=== PATIENT | female | born 1965 | race Caucasian/White ===

== ENCOUNTER 2017-02-17 09:58 | Emergency (ER) | payer BC ==
[2017-02-17 12:07] VITALS: BP 128/85
--- NOTE | 2017-02-17 12:45 | UC ---
Throat Pain/Nasal Noam HPI - HPI Summary HPI Summary: Pt presents with c/o nasal congestion, core throat, generalized body aches, X 1 day. - History of Current Complaint Chief Complaint: UCGeneralIllness Stated Complaint: THROAT,CONGESTION Time Seen by Provider: 02/17/17 12:22 Hx Obtained From: Patient Hx Last Menstrual Period: 07/24/16 ?: No Onset/Duration: Sudden Onset, Lasting Days - 1 day Severity: Mild Cough: Nonproductive Associated Signs & Symptoms: Positive: Dysphagia - Allergies/Home Medications Allergies/Adverse Reactions: Allergies Allergy/AdvReac Type Severity Reaction Status Date / Time No Known Allergies Allergy Verified 02/17/17 12:00 PMH/Surg Hx/FS Hx/Imm Hx Previously Healthy: Yes Endocrine History Of: Denies: Diabetes Cardiovascular History Of: Denies: Hypertension, Pacemaker/ICD Respiratory History Of: Denies: Asthma GI/ History Of: Denies: Renal Disease - Surgical History Surgical History: Yes Surgery Procedure, Year, and Place: 2000 BREAST REDUCTION - Family History Known Family History: Positive: Cardiac Disease, Hypertension - Social History Alcohol Use: None Substance Use Type: None Smoking Status (MU): Never Smoked Tobacco Review of Systems Constitutional: Fever - unsure of temperature does not have thermomator, Chills , Fatigue Skin: Negative Eyes: Negative ENT: Sore Throat Respiratory: Cough Cardiovascular: Negative Gastrointestinal: Negative Genitourinary: Negative Motor: Negative Neurovascular: Negative Musculoskeletal: Myalgia Neurological: Negative Psychological: Negative All Other Systems Reviewed And Are Negative: Yes Physical Exam Triage Information Reviewed: Yes Appearance: Well-Appearing Vital Signs: Initial Vital Signs Temp 98.7 F 02/17/17 12:02 Pulse 73 02/17/17 12:02 Resp 16 02/17/17 12:02 BP 128/85 02/17/17 12:02 Pulse Ox 97 02/17/17 12:02 Vital Signs Reviewed: Yes Eye Exam: Normal ENT Exam: Other ENT: Positive: Nasal congestion, Other: - PND Dental Exam: Normal Neck exam: Normal Respiratory Exam: Normal Cardiovascular Exam: Normal Musculoskeletal Exam: Normal Neurological Exam: Normal Psychological Exam: Normal Skin Exam: Normal Throat Pain/Nasal Course/Dx - Differential Dx/Diagnosis Differential Diagnosis/HQI/PQRI: Influenza, Pharyngitis, Tonsillitis, URI Provider Diagnoses: URI Discharge - Discharge Plan Condition: Stable Disposition: HOME Patient Education Materials: Upper Respiratory Infection (ED) Referrals: Odin Hudson MD [Primary Care Provider] - If Needed Additional Instructions: Please follow up with your PCP or return to clinic as needed.
== END 2017-02-17 13:24 | disposition home or self-care (01) ==
LOC: UCCORT 09:58
DX: J06.9 Acute upper respiratory infection, unspecified (principal)
CPT/HCPCS: 87651; 99211; G0463

== ENCOUNTER 2018-12-15 09:01 | Emergency (ER) | payer BC ==
[2018-12-15 09:22] VITALS: BP 142/89
--- NOTE | 2018-12-15 09:23 | UC ---
Throat Pain/Nasal Noam HPI - HPI Summary HPI Summary: 53 y/o female presents to the urgent care c/o sore throat and fever since yesterday. 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 Yesterday she had a fever of 100.6 and alleviated w/ Dimovo PO. Pain w/ swallowing is 6/10 associated w/ SALDANA, body aches. Pt denies SOB, cough, chest pain,abdominal pain, N/V/D. - History of Current Complaint Chief Complaint: UCGeneralIllness Stated Complaint: ST Time Seen by Provider: 12/15/18 09:19 Hx Obtained From: Patient Hx Last Menstrual Period: 07/24/16 Onset/Duration: Gradual Onset, Lasting Days - 1 days, Still Present Severity: Moderate Pain Intensity: 6 Pain Scale Used: 0-10 Numeric Cough: None Associated Signs & Symptoms: Positive: Dysphagia, Fever. Negative: Sinus Discomfort, Nasal Discharge - Epiglottits Risk Factors Epiglottis Risk Factors: Negative - Allergies/Home Medications Allergies/Adverse Reactions: Allergies Allergy/AdvReac Type Severity Reaction Status Date / Time No Known Allergies Allergy Verified 12/15/18 09:18 Home Medications: Home Medications Naproxen/Esomeprazole Mag [Vimovo Dr 375-20 mg Tablet] 1 tab PO ONCE 12/15/18 [ History Confirmed 12/15/18] PMH/Surg Hx/FS Hx/Imm Hx Previously Healthy: Yes Endocrine History: Dyslipidemia GI/ History: Gastroesophageal Reflux - Surgical History Surgical History: Yes Surgery Procedure, Year, and Place: 2000 BREAST REDUCTION. R knee replacement 2017 - Family History Known Family History: Positive: Cardiac Disease, Hypertension - Social History Occupation: Employed Full-time Lives: With Family Alcohol Use: Occasionally Substance Use Type: None Smoking Status (MU): Never Smoked Tobacco Review of Systems All Other Systems Reviewed And Are Negative: Yes Constitutional: Positive: Fever, Chills, Other - body aches Skin: Positive: Negative Eyes: Positive: Negative ENT: Positive: Sore Throat Respiratory: Positive: Negative Cardiovascular: Positive: Negative Gastrointestinal: Positive: Negative Genitourinary: Positive: Negative Motor: Positive: Negative Neurovascular: Positive: Negative Musculoskeletal: Positive: Myalgia Neurological: Positive: Headache Psychological: Positive: Negative Is Patient Immunocompromised?: No Physical Exam - Summary Physical Exam Summary: VITAL SIGNS: Reviewed. GENERAL: Patient is a well developed and nourished female who is sitting comfortable in the examining table. Patient is not in any acute respiratory distress. HEAD AND FACE: No signs of trauma. No ecchymosis, hematomas or skull depressions. No sinus tenderness. EYES: PERRLA, EOMI x 2, No injected conjunctiva, no nystagmus. No photophobia. EARS: Hearing grossly intact. Ear canals and tympanic membranes are within normal limits. MOUTH: Positive pharynx with erythema, exudates, palatal petechiae. B/L tonsillar enlargement with exudate. Uvula in midline. NECK: Supple, trachea is midline, Positive anterior cervical lymphadenopathy, no JVD, no carotid bruit, no c-spine tenderness, neck with full ROM. No meningeal signs, no Kernig's or brudzinskis signs. CHEST: Symmetric, no tenderness at palpation LUNGS: Clear to auscultation bilaterally. No wheezing or crackles. CVS: Regular rate and rhythm, S1 and S2 present, no murmurs or gallops appreciated. ABDOMEN: Soft, non-tender. No signs of distention. No rebound no guarding, and no masses palpated. Bowel sounds are normal. EXTREMITIES: FROM in all major joints, no edema, no cyanosis or clubbing. NEURO: Alert and oriented x 3. No acute neurological deficits. Speech is normal and follows commands. SKIN: Dry and warm Triage Information Reviewed: Yes Vital Signs: Initial Vital Signs Temp 98.5 F 12/15/18 09:19 Pulse 108 12/15/18 09:19 Resp 18 12/15/18 09:19 BP 142/89 12/15/18 09:19 Pulse Ox 97 12/15/18 09:19 Throat Pain/Nasal Course/Dx - Course Course Of Treatment: 53 y/o female presents to the urgent care c/o sore throat and fever since yesterday. 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 Yesterday she had a fever of 100.6 and alleviated w/ Dimovo PO. Pain w/ swallowing is 6/10 associated w/ SALDANA, body aches. Pt denies SOB, cough, chest pain,abdominal pain, N/V/D. Hx obtained. Pt w/ pahryngitis on examination. RApdi strep ordered: positive. Strep pharyngitis. Rx Amoxicillin PO and advised to continue w/ Dimovo PO for pain and swelling. PT Advised on hand washing to avoid spreading. Also advised to rest, eat well and avoid strenuous exercise. If symptoms do not improve or worsen advised to return to the urgent care or f/u with her PCP for further evaluation and treatment.Pt's BP is elevated today advised to decrease salt in diet, monitor BP and f/u with PCP for further management. D/C instructions explained. PT understood and agreed w/ plan of care. - Differential Dx/Diagnosis Differential Diagnosis/HQI/PQRI: Laryngitis, Mononucleosis, Pharyngitis, Sinusitis, Tonsillitis, URI Provider Diagnosis: Strep pharyngitis, Elevated BP without diagnosis of hypertension Discharge - Sign-Out/Discharge Documenting (check all that apply): Patient Departure - D/C home All imaging exams completed and their final reports reviewed: No Studies - Discharge Plan Condition: Stable Disposition: HOME Prescriptions: Amoxicillin PO (*) [Amoxicillin 500 MG CAP*] 500 mg PO Q12H #20 cap Patient Education Materials: Strep Throat (ED), Low-Sodium Diet (ED) Forms: *Work Release Referrals: Odin Hudson MD [Primary Care Provider] - 3 Days Additional Instructions: 1- Please take the full course of the antibiotic to avoid resistance. 2-Please continue taking Dimovo PO prn as instructed after meals to alleviate pain and swelling. Increase fluid intake, eat well, rest and avoid strenuous exercise 3-If symptoms do not improve or worsen please return to the urgent care or f/u with your PCP in 3 days for further evaluation and treatment. 4- Your BP is elevated today. please decrease salt in your diet, monitor BP and if it continues to be elevated please f/u with your PCP for further management. - Billing Disposition and Condition Condition: STABLE Disposition: Home - Attestation Statements Provider Attestation: Per institutional requirements, I have reviewed the chart, however, I was not consulted specifically or made aware of this patient by the midlevel provider. I did not personally evaluate, interact with , or disposition this patient.
== END 2018-12-15 09:45 | disposition home or self-care (01) ==
LOC: UCCORT 09:01
DX: J02.0 Streptococcal pharyngitis (principal); R03.0 Elevated blood-pressure reading, without diagnosis of hypertension; K21.9 Gastro-esophageal reflux disease without esophagitis; Z79.899 Other long term (current) drug therapy; Z96.651 Presence of right artificial knee joint
CPT/HCPCS: 87651; 99212; G0463

== ENCOUNTER 2019-02-20 12:02 | Emergency (ER) | payer BC ==
[2019-02-20 12:23] VITALS: BP 154/96
--- NOTE | 2019-02-20 12:32 | UC ---
Throat Pain/Nasal Noam HPI - HPI Summary HPI Summary: sore throat since this morning body aches, feverish, no cough , no runny nose - History of Current Complaint Chief Complaint: UCRespiratory Stated Complaint: SORE THROAT,FEVER Time Seen by Provider: 02/20/19 12:20 Hx Obtained From: Patient Hx Last Menstrual Period: 07/24/16 ?: No Onset/Duration: Gradual Onset, Lasting Days - 1, Still Present Severity: Moderate Pain Intensity: 6 Cough: None Associated Signs & Symptoms: Negative: Wheezing, Hoarseness, Sinus Discomfort, Nasal Discharge, Fever, Vomiting, Rash - Allergies/Home Medications Allergies/Adverse Reactions: Allergies Allergy/AdvReac Type Severity Reaction Status Date / Time No Known Allergies Allergy Verified 02/20/19 12:21 PMH/Surg Hx/FS Hx/Imm Hx - Additional Past Medical History Additional PMH: hypercholestermia - Surgical History Surgical History: Yes Surgery Procedure, Year, and Place: 2001 BREAST REDUCTION. R knee replacement 2017 - Family History Known Family History: Positive: Cardiac Disease, Hypertension - Social History Alcohol Use: Occasionally Substance Use Type: None Smoking Status (MU): Never Smoked Tobacco Review of Systems All Other Systems Reviewed And Are Negative: Yes Constitutional: Positive: Fatigue Skin: Positive: Negative Eyes: Positive: Negative ENT: Positive: Sore Throat Respiratory: Positive: Negative Musculoskeletal: Positive: Myalgia Is Patient Immunocompromised?: No Physical Exam Triage Information Reviewed: Yes Appearance: Well-Appearing, No Pain Distress, Well-Nourished Vital Signs: Initial Vital Signs Temp 98.1 F 02/20/19 12:21 Pulse 108 02/20/19 12:21 Resp 17 02/20/19 12:21 BP 154/96 02/20/19 12:21 Pulse Ox 98 02/20/19 12:21 Vital Signs Reviewed: Yes Eye Exam: Normal Eyes: Positive: Conjunctiva Clear ENT: Positive: Normal ENT inspection, Hearing grossly normal, Pharyngeal erythema. Negative: Nasal congestion, Nasal drainage, Tonsillar swelling, Tonsillar exudate Neck: Positive: Supple, Nontender, No Lymphadenopathy Respiratory: Positive: Chest non-tender, Lungs clear, Normal breath sounds Cardiovascular: Positive: RRR, No Murmur, Pulses Normal Abdominal Exam: Normal Skin Exam: Normal Throat Pain/Nasal Course/Dx - Differential Dx/Diagnosis Provider Diagnosis: Strep pharyngitis Discharge - Sign-Out/Discharge Documenting (check all that apply): Patient Departure All imaging exams completed and their final reports reviewed: No Studies - Discharge Plan Condition: Stable Disposition: HOME Prescriptions: Amoxicillin PO (*) [Amoxicillin 875 MG (*)] 875 mg PO BID #20 tab Patient Education Materials: Strep Throat (ED) Referrals: Dorene ORTEZ,Nella Lobo [Primary Care Provider] - If Needed - Billing Disposition and Condition Condition: STABLE Disposition: Home
== END 2019-02-20 12:39 | disposition home or self-care (01) ==
LOC: UCCORT 12:02
DX: J02.0 Streptococcal pharyngitis (principal)
CPT/HCPCS: 87651; 99212; G0463

== ENCOUNTER 2019-11-14 07:52 | Emergency (ER) | payer BC ==
--- OUTSIDE RECORDS SUMMARY | 2019-11-14 07:59 | XMS REPORT | Continuity of Care Document ---
:1965 External Reference #:[id number] Author Name Ngoc Her M.D. 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 [phone] Mailing Clerk Problems Description No Information Available Social History Type Date Description Comments Sex Unknown ETOH Use Occasionally consumes 1-2 per month alcohol Tobacco Use Start: Unknown Patient has never smoked Recreational Drug Use Denies Drug Use Smoking Status Reviewed: 09/25/19 Patient has never smoked Exercise Type/Frequency Exercises regularly walks everyday 1/2 mile Allergies, Adverse Reactions, Alerts Description No Known Drug Allergies Medications Active Medications SIG Qnty Indications Ordering Provider Date Simvastatin 1 tab by mouth Unknown 10mg Tablets daily Valtrex 2 by mouth every Unknown 1gm Tablets 12 hours as needed x 2 doses Tums E-X 750 2 by mouth as Unknown 750mg needed Chewtabs Immunizations Description No Information Available Vital Signs Date Vital Result Comment 09/25/2019 9:51am Height 67.50 inches 5'7.50" Weight 228.00 lb Heart Rate 60 /min regular BP Systolic 128 mmHg LA Regulr Cuff BP Diastolic 96 mmHg LA Regulr Cuff BP Systolic Sitting 130 mmHg Ra Regular Cuff BP Diastolic Sitting 94 mmHg Ra Regular Cuff BP Systolic Standing 122 mmHg Ra Regular Cuff BP Diastolic Standing 98 mmHg Ra Regular Cuff Respiratory Rate 12 /min no resp difficulties Pain Level 0 O2 % BldC Oximetry 98 % BMI (Body Mass Index) 35.2 kg/m2 Results Description No Information Available Procedures Date Code Description Status 09/25/2019 35724 EKG Tracing & Interpretation Completed Medical Devices Description No Information Available Encounters Description No Information Available Assessments Date Code Description Provider 09/25/2019 R94.31 Abnormal electrocardiogram [ECG] [EKG] Ngoc Her M.D. 09/25/2019 E78.5 Hyperlipidemia, unspecified Ngoc Her M.D. 09/25/2019 E66.9 Obesity, unspecified Ngoc Her M.D. 09/25/2019 R06.02 Shortness of breath Ngoc Her M.D. 09/25/2019 Z82.49 Family history of ischemic heart Ngoc Her M.D. disease and other diseases of the circulatory system 09/25/2019 R06.83 Snoring Ngoc Her M.D. 09/25/2019 I10 Essential (primary) hypertension Ngoc Her M.D. Plan of Treatment 09/25/2019 - Ngoc Her M.D.R94.31 Abnormal electrocardiogram [ECG] [EKG]New Orders:Echocardiogram, Ordered: 09/25/19Stress Test, Exercise Echocardiogram, Ordered: 09/25/19Follow up:ov 10/2019 or 11/2019 to discuss kidndE95.5 Hyperlipidemia, kxiikpewprgA23.9 Obesity, whkcyzwbkuqI71.02 Shortness of zchfaqK67.49 Family history of ischemic heart disease and other diseases of the circulatory lnkbgvS92.83 NripydpK73 Essential (primary) hypertension Functional Status Description No Information Available Mental Status Description No Information Available Referrals Description No Information Available
--- OUTSIDE RECORDS SUMMARY | 2019-11-14 07:59 | XMS REPORT | Continuity of Care Document ---
:1965 External Reference #:[id number] Author Name Erica Lin Care Team Providers Name Role Phone HCP given Care Team Information Health Care Sanitary Technician Unavailable [facility] location - Care Team Information Health Care Sanitary Technician Orthopaedic Surgery Problems Active Problems Provider Date Localized, primary osteoarthritis Odin Hudson M.D. Onset: 03/18/2014 Dysphagia Nella Catherine PA Onset: 07/10/2016 Hyperlipidemia Nella Catherine PA Onset: 09/09/2018 Social History Type Date Description Comments Sex Unknown Tobacco Use Start: Unknown Never Smoked Cigarettes ETOH Use Rare Alcohol Use Recreational Drug Use Type Not Specified Tobacco Use Start: Unknown Non Smoker Smoking Status Reviewed: 09/12/19 Non Smoker Allergies, Adverse Reactions, Alerts Description No Known Drug Allergies Medications Active Medications SIG Qnty Indications Ordering Date Provider Simvastatin Take One Tablet By 90tabs Krishna Hensley, 10/01/2017 10mg Mouth Every Night M.D. Tablets For Cholesterol Valtrex 2 by mouth every 12 8tabs B00.9 Krishna Hensley, 02/02/2009 1gm Tablets hours x2 doses at M.D. first sign of cold sore Medications Administered in Office Medication SIG Qnty Indications Ordering Provider Date injection, kenalog, 10 mg Odin Hudson M.D. 02/19/2015 Injection injection, kenalog, 10 mg Odin Hudson M.D. 09/11/2014 Injection injection, kenalog, 10 mg Abhay Garces D.O. 05/10/2014 Injection Immunizations CPT Code Status Date Vaccine Lot # [id number] Given 09/10/2019 Td Immunization [id number] Given 02/02/2009 Adacel or Boostrix, TDaP [id number] Refused 01/26/2014 Flu, Split Virus 3Yrs Vital Signs Date Vital Result Comment 09/10/2019 8:54am BP Systolic 114 mmHg BP Diastolic 80 mmHg Height 68.75 inches 5'8.75" Weight 225.00 lb BMI (Body Mass Index) 33.5 kg/m2 09/09/2018 8:48am BP Systolic 128 mmHg BP Diastolic 80 mmHg Height 68.5 inches 5'8.50" Weight 230.00 lb BMI (Body Mass Index) 34.5 kg/m2 Results Test Acquired Date Facility Test Result H/L Range Note Laboratory test 09/10/2019 [facility] Hemoglobin A1c <pending> finding [phone] (Glyco HGB) TSH (Thyroid Stim Horm) <pending> Laboratory test finding 09/10/2019 [facility] Cytology SEE RESULT BELOW 5 [phone] 1 SEE RESULT BELOW Name: LIZETTE BARKER : [address]: Nella ORTEZ Acct: [id number] Unit: [id number] AGE: 53 Location: [facility] Re09/10/19 SEX: F Status: REG REF SPEC: [id number] JA: 09/10/[address] [facility] [address]: Nella ORTEZ REQ: [id number] RECD: 09/10/190920 STATUS: SOUT _ ORDERED: TP IMAGE ANALYS, HPV/Thin Prep COMMENTS: [id number] FINAL DIAGNOSIS Negative for Intraepithelial lesion or Malignancy HPV RESULTS Date Time Test Result Flag (u) Normal Range 09/10/19 0951 HPV SHERRELL Negative Negative The high-risk HPV types detected by the assay include: 16, 18, 31, 33, 35, 39, 45, 51, 52, 56, 58, 59, 66, and 68. SPECIMEN(S) RECEIVED A. Ectocervical/Endocervical CYTOLOGY ADEQUACY Specimen Adequacy: Satisfactory of evaluation Transformation zone component identified CONTINUED ON NEXT PAGE DEPARTMENT OF PATHOLOGY, [address] [place] [address] Marco Pierre M.D. Director [facility] # [id number] CYTOLOGY PATIENT INFORMATION Patient Information: HPV: High risk HPV RNA testing regardless of pap results. Actual Specimen Date: 09/10/19 LMP If Unknown: 3 yrs ago Spec Date if unknown: 2015 ?: N Post Menopausal?: Y Hysterectomy?: N Previous Abnormal Pap Smears?:N Signed by and Reported on: SHAWN Bell (ASCP) [id number] This Pap test was evaluated with the assistance of the ThinPrep Test Imaging System. Due to cytologic findings at the bed machine operator microscope, comprehensive manual rescreening by a Building Appraiser may be required. The Pap Smear is a screening test designed to aid in the detection of premalignant and malignant conditions of the uterine cervix. It is not a diagnostic procedure and should not be used as the sole means of detecting cervical cancer. Both false- positive and false- negative reports do occur. Depending on your risk status, a Pap smear should be obtained and evaluated every 1-3 years. END OF REPORT DEPARTMENT OF PATHOLOGY, [address] [place] [address] Marco Pierre M.D. Director [facility] # [id number] Procedures Date Code Description Status 09/10/2019 17817 Electrocardiogram Complete Completed 12/05/2018 [id number] Colonoscopy Completed 09/19/2018 [id number] Mammogram Completed Medical Devices Description No Information Available Encounters Type Date Location Provider Dx Diagnosis Office Visit 09/10/2019 Main Office Nella Catherine PA Z00.00 Encntr for general 8:45a adult medical exam w/o abnormal findings Z12.4 Encounter for screening for malignant neoplasm of cervix Z23 Encounter for immunization Z12.31 Encntr screen mammogram for malignant neoplasm of breast E78.5 Hyperlipidemia, unspecified Z82.49 Family hx of ischem heart dis and oth dis of the circ sys Z41.8 Encntr for oth proc for purpose oth [facility] Z68.33 Body mass index (BMI) 33.0-33.9, adult Assessments Date Code Description Provider 09/10/2019 Z00.00 Encounter for general adult medical examination Nella Catherine PA without abno 09/10/2019 Z12.4 Encounter for screening for malignant neoplasm of Nella Catherine PA cervix 09/10/2019 Z23 Encounter for immunization Nella Catherine PA 09/10/2019 Z12.31 Encounter for screening mammogram for malignant Nella Catherine PA neoplasm of breast 09/10/2019 E78.5 Hyperlipidemia, unspecified Nella Catherine PA 09/10/2019 Z82.49 Family history of ischemic heart disease and Nella Catherine PA other diseases of the circulatory system 09/10/2019 Z41.8 Encounter for other procedures for purposes other Nella Catherine PA than remedying health state 09/10/2019 Z68.33 Body mass index (BMI) 33.0-33.9, adult Nella Catherine PA Plan of Treatment Future Appointment(s):09/14/2020 9:40 am - Nella Catherine PA at [id number] - Nella Catherine, PAZ00.00 Encounter for general adult medical examination without abnoComments:53 year old female. Screening updated. Pt declined flu vaccine. Is on wait list for Shingrix.Follow up:physical in one yearZ12.4 Encounter for screening for malignant neoplasm of cervixComments:PAP done today. If normal, then next pap test should be in 3 years.Z23 Encounter for immunizationComments:Td booster given today.Z12.31 Encounter for screening mammogram for malignant neoplasm of breastNew Xrays:Mammography, Screening, Bilateral, Scheduled: 09/24/19Comments:Mammogram due--ordered.E78.5 Hyperlipidemia, unspecifiedComments:Will recheck labs.Z82.49 Family history of ischemic heart disease and other diseases of the circulatory systemComments:EKG today showed sinus bradycardia. Will refer to cardiology for consult/further testing based on FHx of early cardiac disease.Referral:[facility], Cardiology/Phys/EkuctQ30.8 Encounter for other procedures for purposes other than remedying health bjdglF74.33 Body mass index (BMI) 33.0-33.9, adult Functional Status Description No Information Available Mental Status Description No Information Available Referrals Refer to Reason for Referral Status Appt Date [facility] FHx early heart disease Consult and Testing - Sent / Specialist decides [facility] of [address] [place] [address] [phone]
[2019-11-14 08:10] VITALS: BP 138/83
--- NOTE | 2019-11-14 08:26 | UC ---
Throat Pain/Nasal Noam HPI - HPI Summary HPI Summary: 54-year-old female presents with onset of headache and sore throat last evening. Symptoms are associated with mild nasal congestion and occasional dry cough. 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 Denies fever, chills, ear pain, dysphagia, chest pain, shortness of breath, abdominal pain, nausea, or vomiting. - History of Current Complaint Chief Complaint: UCRespiratory Stated Complaint: ST Time Seen by Provider: 11/14/19 08:15 Hx Obtained From: Patient Hx Last Menstrual Period: 07/24/16 Pain Intensity: 5 - Allergies/Home Medications Allergies/Adverse Reactions: Allergies Allergy/AdvReac Type Severity Reaction Status Date / Time No Known Allergies Allergy Verified 11/14/19 08:01 PMH/Surg Hx/FS Hx/Imm Hx Endocrine History: Dyslipidemia - Surgical History Surgical History: Yes Surgery Procedure, Year, and Place: 2000 BREAST REDUCTION. R knee replacement 2017 - Family History Known Family History: Positive: Cardiac Disease, Hypertension - Social History Occupation: Employed Full-time Lives: With Family Alcohol Use: Rare Substance Use Type: None Smoking Status (MU): Never Smoked Tobacco Review of Systems All Other Systems Reviewed And Are Negative: Yes Constitutional: Negative: Fever, Chills Skin: Negative: Rash Eyes: Negative: Drainage, Eye Redness ENT: Positive: Sore Throat, Nasal Discharge. Negative: Ear Ache, Sinus Congestion, Sinus Pain/Tenderness Respiratory: Positive: Cough. Negative: Shortness Of Breath Cardiovascular: Negative: Chest Pain Gastrointestinal: Negative: Abdominal Pain, Vomiting, Nausea Genitourinary: Positive: Negative Musculoskeletal: Positive: Negative Neurological: Positive: Headache Is Patient Immunocompromised?: No Physical Exam - Summary Physical Exam Summary: GENERAL APPEARANCE: Well developed, well nourished, alert and cooperative, and appears to be in no acute distress. EYES: Conjunctiva clear. No drainage. EARS: External auditory canals and tympanic membranes clear, hearing grossly intact. NOSE: No nasal discharge. THROAT: Pharyngeal erythema. 2+ tonsils without exudate or lesions. Uvula midline. NECK: Neck supple, non-tender. Mild anterior lymphadenopathy. CARDIAC: Normal S1 and S2. No S3, S4 or murmurs. Rhythm is regular. There is no peripheral edema, cyanosis or pallor. Extremities are warm and well perfused. Capillary refill is less than 2 seconds. Peripheral pulses intact. LUNGS: Clear to auscultation without rales, rhonchi, wheezing or diminished breath sounds. ABDOMEN: Positive bowel sounds. Soft, nondistended, nontender. No guarding or rebound. No masses or hepatosplenomegally. MUSKULOSKELETAL: ROM intact to all extremities. No joint erythema or tenderness. Normal muscular development. Normal gait. SKIN: Skin normal color, texture and turgor with no lesions or eruptions. Triage Information Reviewed: Yes Vital Signs: Initial Vital Signs Temp 99.2 F 11/14/19 08:03 Pulse 100 11/14/19 08:03 Resp 20 11/14/19 08:03 BP 138/83 11/14/19 08:03 Pulse Ox 96 11/14/19 08:03 Vital Signs Reviewed: Yes Throat Pain/Nasal Course/Dx - Course Course Of Treatment: 54-year-old female presents with onset of headache and sore throat last evening. Symptoms are associated with mild nasal congestion and occasional dry cough. 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 Denies fever, chills, ear pain, dysphagia, chest pain, shortness of breath, abdominal pain, nausea, or vomiting. Afebrile. Vital signs stable. Patient had pharyngeal erythema, 2+ tonsils without exudate, mild anterior cervical pain, and otherwise unremarkable exam. Rapid strep test was positive. Reviewed the results with the patient and will start her on amoxicillin 500 mg twice a day 10 days as well as symptomatic therapy for strep pharyngitis. She is to follow-up with her primary care provider in 3 days if symptoms are not improving. Anticipatory guidance and warning symptoms are reviewed to the patient. Verbalizes understanding and agrees to plan of care. - Differential Dx/Diagnosis Differential Diagnosis/HQI/PQRI: Pharyngitis, Tonsillitis, URI Provider Diagnosis: Strep pharyngitis Discharge ED - Sign-Out/Discharge Documenting (check all that apply): Patient Departure All imaging exams completed and their final reports reviewed: No Studies - Discharge Plan Condition: Stable Disposition: HOME Prescriptions: Amoxicillin PO (*) [Amoxicillin 500 MG CAP*] 500 mg PO Q12H #20 cap Patient Education Materials: Strep Throat (ED) Referrals: Nella Catherine PA [Primary Care Provider] - 3 Days (If no improvement.) Additional Instructions: Your rapid strep test in the clinic today was positive. We will start you on an antibiotic to treat the infection. Start amoxicillin 500 mg twice a day for 10 days. After you have been on antibiotics for 3 days, throw out your toothbrush and replace with a new one to prevent reinfection. Drink plenty of fluids to avoid dehydration especially if you are running any fever. Use salt water gargles several times a day. Take over the counter acetaminophen (Tylenol) or ibuprofen (Advil, Motrin) according to directions as needed for pain or fever. You may also use Chloraseptic spray or Cepacol lonzenges according to directions which contain a numbing medication and can provide some temporary relief from your sore throat. Return here or follow up with your primary care provider in 3-5 days if symptoms do not improve. Seek immediate medical attention in the emergency room if you have fever greater than 100.5 F despite taking acetaminophen or ibuprofen, are unable to swallow or develop drooling, are unable to open your mouth fully, are unable to eat or drink, have pain that is not relieved with over the counter pain medication, have any difficulty breathing, or any worsening of symptoms. - Billing Disposition and Condition Condition: STABLE Disposition: Home
== END 2019-11-14 08:30 | disposition home or self-care (01) ==
LOC: UCCORT 07:52
DX: J02.0 Streptococcal pharyngitis (principal); R09.81 Nasal congestion
CPT/HCPCS: 87651; 99212; G0463